=== PATIENT | female | born 1985 | race Caucasian/White ===

== ENCOUNTER 2019-08-22 19:58 | Emergency (ER) | payer SELFPAY ==
[~2019-08-22] VITALS: Ht 162 cm; Wt 54.0 kg
[~2019-08-22 19:58] MED LIST: ACHD5005 PO; ALBU8.5H2 IH; ALPR1TAB PO; AMOX500C2 PO; CEPH500C PO; CLIN-80 PO; DICL50TA4 PO; DOCU100C37 PO; FERR-84 PO; FLT05NA16 NSEACH; IBUP-1773 PO; MELO-195 PO; NAPR-243 PO; OMEP20CA6 PO; PANT20TA PO; PNV91TAB3 PO; RT-ALBUINH IH; SLMFT1E INH; ZLP10T PO; ZOLP10TA PO
[2019-08-22 20:05] VITALS: BP 121/85
--- NOTE | 2019-08-22 20:12 | ED Integumentary General ---
General Stated Complaint: R FOOT STUNG BY BEE Source: patient Exam Limitations: no limitations History of Present Illness Date Seen by Provider: Aug 22, 2019 Time Seen by Provider: 20:09 Initial Comments To ER with reports of being stung by a bee 5 hours ago to the plantar surface of the right foot. She has soaked it in ice water, applied baking soda paste, taken a Benadryl but it still swollen. Timing/Duration: this afternoon Severity: mild Associated Symptoms: denies symptoms Allergies and Home Medications Allergies Coded Allergies: codeine (Verified Allergy, Unknown, 08/27/06) morphine (Verified Allergy, Unknown, ITCHING, 01/21/15) Uncoded Allergies: MINT RUBS (Allergy, Unknown, 08/27/06) Home Medications Albuterol Sulfate 8.5 Gm Hfa.aer.ad, 2 PUFF IH Q4H PRN for WHEEZING, (Reported) Docusate Sodium 100 Mg Capsule, 100 MG PO BID Prescribed by: DILMA LING on 01/26/15 1158 Ferrous Sulfate 325 Mg Tablet, 325 MG PO DAILY, (Reported) Hydrocodone Bit/Acetaminophen 1 Each Tablet, 1-2 TAB PO Q6H PRN for PAIN Prescribed by: DILMA LING on 01/26/15 1158 Ibuprofen 600 Mg Tablet, 600 MG PO Q6H PRN for PAIN Prescribed by: DILMA LING on 01/26/15 1158 Pnv95/Ferrous Fumarate/FA 1 Each Tablet, 1 EACH PO DAILY, (Reported) Zolpidem Tartrate 10 Mg Tablet, 10 MG PO HS, (Reported) Patient Home Medication List Home Medication List Reviewed: Yes Review of Systems Review of Systems Constitutional: see HPI EENTM: see HPI Respiratory: no symptoms reported Cardiovascular: no symptoms reported Genitourinary: no symptoms reported Musculoskeletal: see HPI Skin: no symptoms reported Endocrine: No Symptoms Reported Past Tmkfioo-Tgdztj-Rfhwho Hx Patient Social History Recent Foreign Travel: No Contact w/Someone Who Travel: No Immunizations Up To Date Tetanus Booster (TDap): Unknown Past Medical History Section Asthma Reproductive Disorders: No Gastroesophageal Reflux Anxiety, Depression Family Medical History Arthritis 19 MOTHER Psychosocial problem G8 BROTHER Seizure disorder G8 SISTER No Pertinent Family Hx Physical Exam Vital Signs Capillary Refill : General Appearance: WD/WN, no apparent distress HEENT: PERRL/EOMI, normal ENT inspection Respiratory: no respiratory distress, no accessory muscle use Neurologic/Psychiatric: alert, normal mood/affect, oriented x 3 Skin: normal color, warm/dry Skin Problem Character: other (plantar surface medial aspect right foot has a bit of edema with minimal erythema. This is questionable at best. I offered her a shot of steroids she is not interested in a shot because she has a needle phobia. There is not much else to offer here, this just needs time and rest ice elevation and antihistamine) Departure Impression Primary Impression: Local reaction to bee sting Qualified Codes: T63.443A - Toxic effect of venom of bees, assault, initial encounter Disposition: HOME, SELF-CARE Condition: Stable Departure-Patient Inst. Decision time for Depature: 20:11 Referrals: JONNY POLK MD (PCP/Family) Primary Care Physician Patient Instructions: Insect Bites and Stings CHASE RENTERIA APRN Aug 22, 2019 20:12
== END 2019-08-22 20:13 | disposition home or self-care (01) ==
LOC: EDUNIT# 19:58 → ER 19:59
DX: T63.441A Toxic effect of venom of bees, accidental (unintentional), initial encounter (principal)
CPT/HCPCS: 99283

== ENCOUNTER → 2022-12-09 | Outpatient (CLI) | payer OTHER ==
[~2022-12-09] MED LIST changes: +ALBU8.5H6 IH; -RT-ALBUINH IH
--- NOTE | 2022-12-10 08:51 | Diagnostic Imaging Report ---
Indication: Routine screening. No prior studies are available for comparison. This is a baseline study. 2-D and 3-D bilateral screening mammography was performed with CAD. The current study was also evaluated with a Computer Aided Detection (CAD) system. Both breasts are heterogeneously dense, limiting the sensitivity of mammography. No mass or malignant-appearing microcalcifications are seen. Axillae are unremarkable. IMPRESSION: BI-RADS Category 1 No mammographic features suspicious for malignancy are identified. ACR BI-RADS Category 1: Negative. Result letter will be mailed to the patient. Note: At least 10% of breast cancer is not imaged by mammography. Dictated by: Dictated on workstation # [id number]
== END ==
LOC: RAD 15:23
PROVIDERS: ATTEND Family Medicine
DX: Z12.31 Encounter for screening mammogram for malignant neoplasm of breast (principal)
CPT/HCPCS: 77063; 77067

== ENCOUNTER 2023-01-27 05:54 | Outpatient (CLI) | payer OTHER ==
[~2023-01-27] VITALS: Ht 162.6 cm; Wt 65.3 kg
== END 2023-02-01 12:50 | disposition home or self-care (01) ==
LOC: PREOP 05:54
PROVIDERS: ATTEND Surgery
DX: Z01.818 Encounter for other preprocedural examination (principal)